=== PATIENT | male | born 1990 | race Caucasian/White ===

== ENCOUNTER 2020-12-10 11:45 | Emergency (ER) | payer OTHER, SELFPAY ==
[2020-12-10 11:54] VITALS: BP 118/73; PULSE 74; RESP 12; TEMP 36.9; O2SAT 100
--- NOTE | 2020-12-10 12:09 | ED.URI ---
HPI - URI/Sore Throat General Chief Complaint: Upper Respiratory Infection Stated Complaint: Congestion,Cough Time Seen by Provider: 12/10/20 12:09 Source: patient Mode of arrival: ambulatory Limitations: no limitations History of Present Illness HPI Narrative: Ralph Lanier is a 30 yo male with no PMH comes to [facility] with complaints of sinus congestion and a cough for the last week, he has been taking Sudafed and Claritin and feels a little bit better but states hits still has fatigue and feels congested. Cough is mostly at night. He works outside and has been trying to stay hydrated Related Data Allergies Allergy/AdvReac Type Severity Reaction Status Date / Time Sulfa (Sulfonamide Allergy Rash Verified 12/10/20 11:54 Antibiotics) Review of Systems Review of Systems: Narrative: CONSTITUTIONAL: Denies fever, chills, sweats. EYES: Denies visual changes, redness, discharge. ENT: Has rhinorrhea, has congestion, has sore throat, otalgia. CARDIOVASCULAR: Denies chest pain, palpitations, edema. RESPIRATORY: Denies dyspnea, wheezing, has cough GASTROINTESTINAL: Denies abdominal pain, nausea, vomiting, diarrhea. GENITOURINARY: Denies dysuria, hematuria, abnormal discharge SKIN: Denies rash or itching. NEUROLOGIC: Denies numbness, or focal weakness. PSYCHIATRIC: Denies anxiety or depression. PENDING SALE TO [facility] Past Medical History Medical History No acute medical problems Family History Family History (Updated 12/10/20 @ 12:21 by Leny Nelson CNP) Other No acute medical problems Social History Social History (Updated 12/10/20 @ 12:21 by Leny Nelson CNP) Smoking status: Never smoker Alcohol intake: current Comments At time of signature, I agree with nursing past medical, surgical, social and family history. There is no relevant family history pertinent to the presenting complaint. Exam Narrative: Exam Narrative: GENERAL: This is a well-nourished, well-developed patient, in mild distress. HEAD: normocephalic, atraumatic. EYES: Sclera clear/white. Vision is grossly intact. EARS: External ears normal, auditory canals clear and without drainage, TMs normal without perforation. Hearing grossly intact. NOSE: External nose normal without nasal discharge, nares without redness, no rhinorrhea. THROAT: Mucous membranes moist, posterior pharynx erythema NECK: Neck supple, non-tender CARDIOVASCULAR: Regular rate and rhythm without murmurs, gallops, or rubs. RESPIRATORY: Clear to auscultation. Breath sounds equal bilaterally. No wheezes, rales, or rhonchi. GASTROINTESTINAL: Abdomen soft, SKIN: warm, intact with no suspicious lesions or rash, good texture and turgor. NEURO: awake, alert, and oriented to person, place and time. There were no obvious focal neurologic abnormalities. Steady gait EXTREMITIES: Normal range of motion. BACK: Nontender without deformity Course Course Emergency Course: Comes to [facility] with complaints of congestion and cough and fatigue x1 week Started on prednisone and continue to take Sudafed and Claritin also start her about Robitussin-DM Patient to hydrate well Vital Signs Vital signs: Vital Signs Temperature 98.5 F 12/10/20 11:54 Pulse Rate 74 12/10/20 11:54 Respiratory Rate 12 12/10/20 11:54 Blood Pressure 118/73 12/10/20 11:54 Pulse Oximetry 100 12/10/20 11:54 Temperature 98.5 F 12/10/20 11:54 Pulse Rate 74 12/10/20 11:54 Respiratory Rate 12 12/10/20 11:54 Blood Pressure 118/73 12/10/20 11:54 Pulse Oximetry 100 12/10/20 11:54 MDM - URI/Sore Throat Differential Diagnosis Differential diagnosis: Likely upper respiratory infection, viral infection, bronchitis, pharyngitis and other Critical Care Time Critical Care Time Critical Care Time: No Discharge Plan Discharge Clinical Impression: Sinusitis Qualifiers: Sinusitis location: frontal Chronicity: acute Recurrence: n
== END 2020-12-10 12:28 | disposition home or self-care (01) ==
PROVIDERS: Emergency Provider Nurse Practitioner
DX: J01.10 Acute frontal sinusitis, unspecified (principal)
CPT/HCPCS: 99213; G0463